=== PATIENT | male | born 1990 | race Caucasian/White ===

== ENCOUNTER 2018-08-19 09:57 | Emergency (ER) | payer MEDICAID, OTHER ==
[2018-08-19] MEDS ORDERED: TDAP ADULT 0.5 ML INJ (BOOSTRIX) IM ONE (11:45)
--- NOTE | 2018-08-19 11:46 | EDPHY ---
General - History Smoking Status: Current every day smoker Time Seen by Provider: 08/19/18 11:45 Narrative: CHIEF COMPLAINT: I crushed my thumb HISTORY OF PRESENT ILLNESS: Patient presents by POV from work with complaints of "I crushed my thumb." He reports that this happened just prior to arrival. He describes accidentally crushing his right thumb between two metal components at his job. Brief incident without sustained crushed. Severe pain in the distal right thumb. No hand pain. Does radiate into the forearm with movement. No numbness or tingling. Mild bleeding that has stopped. No injury elsewhere. He thinks his Tdap is up to date, but he is not completely sure. Symptoms improve at rest. No other associated complaints or modifying factors. Right hand dominant TIME OF INJURY: Just prior to arrival TETANUS STATUS: Questionable. Possibly 5 years ago MEDICAL/SURGICAL/SOCIAL HISTORY: cholecystectomy, hand surgery remotely. shingles. daily smoker. lives independently. REVIEW OF SYSTEMS: Ten systems reviewed and are negative unless otherwise noted in the HPI EXAMINATION General Appearance: Alert, no distress. conversing in full sentences Head: normocephalic, atraumatic Cardiovascular: symmetric radial pulses with good signs of perfusion to right hand. brisk cap refill right hand. Neurological: A&O, light and 2 point sensory symmetric of the fingers. 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 superficial abrasion to the radial side of the right thumb nail. No involvement of nail or nail bed. no puncture. no laceration. no communication with joint space of underlying IP Extremities: swelling and tenderness of right thumb over distal phalanx. no tenderness of right thumb MTP or snuffbox. ROM of fingers symmetric to left DIFFERENTIAL DIAGNOSES: Including but not limited to crush, fracture, sprain, strain, dislocation, open fracture MDM: 11:45 a.m. Crush injury to the right thumb just prior to arrival today with fracture at the base of the distal phalanx of the left thumb. I do not appreciate an obvious communication to the joint space but there is an overlying abrasion that will need to be debrided and irrigated and re-evaluated. Tdap fully updated. I have administered a digital block. 12:10 p.m. Crush injury with fracture at the base of the left thumb distal phalanx. This is a closed fracture. I have re-evaluated the wound after vigorous debridement and irrigation and there is no deep puncture. There is only superficial abrasion. There is no communication to the joint space. His tetanus will be updated here. I will put him on prophylactic Keflex as there is an abrasion overlying the fracture. He will be placed in a thumb splint to immobilize. He will need to follow up with worker's compensation and hand specialist for definitive care of the fracture. He is awake and alert no acute distress with vital signs are stable. He is comfortable this plan. Discharged home stable condition. PROCEDURE: Digital Block Indication: Crush injury Consent: Verbal Location: Left thumb Anesthesia: Lidocaine 1% plain, 0.25% Marcaine plain, 5mL Description: Base of the finger was prepped. The above was infused without difficulty in a ring block fashion. Tolerated well. Good anesthesia. Complications: None SUPERVISION: This patient was independently evaluated without direct involvement of or examination by the attending physician. ED Precautions: Worsening pain. Erythema, edema, cyanosis, pallor, paresthesia or anesthesia. (Esteban Mukherjee) Discussion: The patient was evaluated and managed by the Physician Turning Lathe Tender. My co- signature indicates that I have reviewed this chart and I agree with the findings and plan of care as documented. I am the secondary supervising physician. (Judy Das) - Objective Vital Signs: Initial Vital Signs Temperature (C) 36.8 C 08/19/18 10:14 Heart Rate 79 08/19/18 10:14 Respiratory Rate 16 08/19/18 10:14 Blood Pressure 125/74 H 08/19/18 10:14 O2 Sat (%) 98 08/19/18 10:14 O2 Delivery Mode Room Air Allergies/Adverse Reactions: No Allergies [NKDA] Allergy (Verified 05/04/16 08:37) Home Medications: Medication Instructions Recorded Cephalexin [Keflex (*)] 500 mg PO QID #28 cap 08/19/18 oxyCODONE HCL/ACETAMINOPHEN 1 each PO Q4-6PRN PRN #7 tablet 08/19/18 [Percocet 5-325 mg Tablet] Medications Given: Discontinued Medications Diphtheria/Tetanus/Acell Pertussis (Boostrix) 0.5 ml IM .ONCE ONE Stop: 08/19/18 11:46 Last Admin: 08/19/18 12:13 Dose: 0.5 ml Departure - Departure Disposition: Home, Routine, Self-Care Clinical Impression: Crushing injury of finger of right hand, Displaced fracture of distal phalanx of right thumb, initial encounter for closed fracture Condition: Good Instructions: Thumb Fracture (ED), Crush Injury (ED) Additional Instructions: 1. Keep your splint in place until seen by orthopedist for definitive care 2. Daily wound care to the affected area including antibacterial wash and bacitracin/Neosporin. Do not use any peroxide or alcohol on the wound 3. Ice and elevate the extremity often 4. Ibuprofen 600 mg every 8 hr as needed for pain 5. Percocet as prescribed as needed for breakthrough pain 6. Keflex as prescribed to completion for 7 days 7. ED precautions for worsening pain, numbness, tingling, changes in color of the thumb Referrals: Kenn Ayoub MD [Medical Doctor] - As per Instructions Stand Alone Forms: Work Comp Follow Up, Work Excuse Prescriptions: Cephalexin [Keflex (*)] 500 mg PO QID #28 cap oxyCODONE HCL/ACETAMINOPHEN [Percocet 5-325 mg Tablet] 1 each PO Q4-6PRN PRN #7 tablet PRN Reason: Pain, Breakthrough
[2018-08-19 12:27] VITALS: BP 127/82
== END 2018-08-19 12:27 | disposition home or self-care (01) ==
PROC: 3E0T3BZ Introduction of Anesthetic Agent into Peripheral Nerves and Plexi, Percutaneous Approach (ICD-10-PCS; principal; 2018-08-19)
DX: S62.524A Nondisplaced fracture of distal phalanx of right thumb, initial encounter for closed fracture (principal); S67.01XA Crushing injury of right thumb, initial encounter; W23.1XXA Caught, crushed, jammed, or pinched between stationary objects, initial encounter; Y99.0 Civilian activity done for income or pay; Z23 Encounter for immunization